=== PATIENT | female | born 1960 | race Caucasian/White ===

== ENCOUNTER 2019-07-18 15:22 | Outpatient (CLI) | payer MEDICARE, OTHER | END 2019-07-18 15:23 | disposition home or self-care (01) | LOC: COV 15:22 | PROVIDERS: ATTEND Family Medicine | DX: R50.9 Fever, unspecified (principal) | CPT/HCPCS: 81599 ==

== ENCOUNTER 2019-07-21 12:45 | Emergency (ER) | payer MEDICARE, OTHER ==
[2019-07-21] MEDS ORDERED: SODIUM CHLORIDE 0.9% 1,000 ML IV ONE ×2 (13:22→15:46)
--- NOTE | 2019-07-21 13:42 | ED Physician Documentation ---
History of Present Illness - Stated complaint Stated Complaint: WEAKNESS/COUGH - Chief complaint Chief Complaint: General - History obtained from History obtained from: Patient - History of Present Illness Timing: How many days ago (5) Pain level max: 8 Pain level now: 7 - Additonal information Additional information: 59-year-old female states that she has not felt well for the past 5 days or so. She states she has been tired and weak. States she has muscle cramping and decreased appetite. States her left thigh hurts as well. No leg swelling. Nothing makes it better or worse. Has not had fevers but has felt hot and cold. States she had a negative coronavirus test 3 days ago. Today she just feels more tired and fatigued. Review of Systems Ten Systems: 10 systems reviewed and negative Constitutional: reports: Chills. denies: Fever Ears: denies: Ear pain Nose: denies: Rhinorrhea / runny nose, Congestion Throat: denies: Sore throat Cardiac: reports: Chest pain / pressure Respiratory: reports: Cough. denies: Dyspnea, Hemoptysis, Wheezing GI: denies: Abdominal Pain, Nausea, Vomiting, Constipation, Diarrhea : denies: Dysuria Skin: denies: Rash Musculoskeletal: denies: Neck pain, Back pain Neurologic: denies: Headache PD PAST MEDICAL HISTORY - Past Medical History Past Medical History: Yes Cardiovascular: High cholesterol - Present Medications Home Medications: Ambulatory Orders Medication Instructions Recorded Confirmed Albuterol Sulf [Ventolin Hfa] 60 puffs INH Q4HR PRN 07/21/19 07/21/19 Atorvastatin Calcium [Lipitor] 80 mg PO DAILY 07/21/19 07/21/19 Carvedilol 6.25 mg PO BID 07/21/19 07/21/19 Fluticasone [Flonase] 1 sprays HELLEN BID PRN 07/21/19 07/21/19 Montelukast [Singulair] 10 mg PO DAILY 07/21/19 07/21/19 Morphine Sulfate 30 mg PO Q8HR PRN 07/21/19 07/21/19 Olmesartan Medoxomil 20 mg PO DAILY 07/21/19 07/21/19 Omeprazole 40 mg PO DAILY 07/21/19 07/21/19 allopurinoL [Allopurinol] 100 mg PO DAILY 07/21/19 07/21/19 tiZANidine [Zanaflex] 4 mg PO Q8H 07/21/19 07/21/19 - Allergies Allergies/Adverse Reactions: Allergies Allergy/AdvReac Type Severity Reaction Status Date / Time Sulfa (Sulfonamide Allergy Hives Verified 07/21/19 13:10 Antibiotics) - Living Situation Living Situation: reports: With family Living Arrangement: reports: At home PD ED PE NORMAL - Vitals Vital signs reviewed: Yes - General General: Alert and oriented X 3, No acute distress, Well developed/nourished - HEENT HEENT: Moist mucous membranes - Neck Neck: Supple, no meningeal sign - Cardiac Cardiac: RRR, Strong equal pulses - Respiratory Respiratory: No respiratory distress, Clear bilaterally - Abdomen Abdomen: Soft, Non tender, Non distended - Back Back: No CVA TTP, No spinal TTP - Derm Derm: Warm and dry, No rash - Extremities Extremities: No edema, Other (Tender to palpation medial aspect of the left thigh, from the knee to the groin. No palpable cord. No skin changes. No crepitus.) - Neuro Neuro: Alert and oriented X 3 - Psych Psych: Normal mood, Normal affect Results - Vitals Vitals: Vital Signs - 24 hr 07/21/19 07/21/19 07/21/19 12:50 13:10 15:00 Temperature 36 C L Heart Rate 101 H 97 81 Respiratory 18 18 18 Rate Blood Pressure 102/69 113/78 119/60 O2 Saturation 100 100 99 07/21/19 16:30 Temperature Heart Rate 87 Respiratory 16 Rate Blood Pressure 107/72 O2 Saturation 96 Oxygen O2 Source Room air - Labs Labs: Laboratory Tests 07/21/19 07/21/19 07/21/19 13:30 13:55 15:00 WBC 15.2 H RBC 4.95 Hgb 15.5 Hct 47.0 MCV 94.9 MCH 31.3 H MCHC 33.0 RDW 14.6 Plt Count 308 MPV 10.6 Neut # (Auto) 8.2 H Lymph # (Auto) 5.6 H Smith # (Auto) 1.1 H Eos # (Auto) 0.1 Baso # (Auto) 0.1 Absolute Nucleated RBC 0.00 Nucleated RBC % 0.0 Manual Slide Review Indicated RBC Morph Micro Appear 2+ ANISOCYTOSIS Sodium 140 Potassium 3.0 L Chloride 104 Carbon Dioxide 25 Anion Gap 11.0 BUN 21 H Creatinine 0.6 Estimated GFR (MDRD) 102 Glucose 119 H Calcium 8.9 Phosphorus 3.2 Magnesium 1.9 Total Bilirubin 1.0 AST 30 ALT 34 Alkaline Phosphatase 60 Total Protein 6.5 L Albumin 4.0 Globulin 2.5 Albumin/Globulin Ratio 1.6 Lipase 36 Urine Color Urine Clarity Urine pH Ur Specific [place] Urine Protein Urine Glucose (UA) Urine Ketones Urine Occult Blood Urine Nitrite Urine Bilirubin Urine Urobilinogen Ur Leukocyte Esterase Ur Microscopic Review Urine Culture Comments Influenza A (Rapid) Negative Influenza B (Rapid) Negative 07/21/19 16:00 WBC RBC Hgb Hct MCV MCH MCHC RDW Plt Count MPV Neut # (Auto) Lymph # (Auto) Smith # (Auto) Eos # (Auto) Baso # (Auto) Absolute Nucleated RBC Nucleated RBC % Manual Slide Review RBC Morph Micro Appear Sodium Potassium Chloride Carbon Dioxide Anion Gap BUN Creatinine Estimated GFR (MDRD) Glucose Calcium Phosphorus Magnesium Total Bilirubin AST ALT Alkaline Phosphatase Total Protein Albumin Globulin Albumin/Globulin Ratio Lipase Urine Color YELLOW Urine Clarity CLEAR Urine pH 6.5 Ur Specific [place] 1.020 Urine Protein NEGATIVE Urine Glucose (UA) NEGATIVE Urine Ketones NEGATIVE Urine Occult Blood NEGATIVE Urine Nitrite NEGATIVE Urine Bilirubin NEGATIVE Urine Urobilinogen 0.2 (NORMAL) Ur Leukocyte Esterase NEGATIVE Ur Microscopic Review NOT INDICATED Urine Culture Comments NOT INDICATED Influenza A (Rapid) Influenza B (Rapid) - Rads (name of study) Chest x-ray Radiology: Prelim report reviewed, EMP read contemporaneously, See rad report (No acute abnormality) Left lower extremity duplex ultrasound Radiology: Prelim report reviewed, EMP read contemporaneously, See rad report (No DVT) PD MEDICAL DECISION MAKING - ED course Complexity details: reviewed results, re-evaluated patient, considered differential, d/w patient ED course: Patient is dehydrated with mild hypokalemia. Given IV fluids and potassium replaced. Feels better. Appears to be a viral syndrome. Negative coronavirus test 3 days ago. Negative influenza today. No pneumonia on chest x-ray. No evidence of UTI. We will continue supportive care and have her follow-up with her doctor. Patient counseled regarding signs and symptoms for which I believe and urgent re-evaluation would be necessary. Patient with good understanding of and agreement to plan and is comfortable going home at this time This document was made in part using voice recognition software. While efforts are made to proofread this document, sound alike and grammatical errors may occur. Departure - Departure Disposition: 01 Home, Self Care Clinical Impression: Viral syndrome, Dehydration, Hypokalemia Condition: Good Instructions: ED Viral Syndrome Follow-Up: your,doctor in 1 week if not better [Other] Comments: Drink plenty of fluids and rest. You can continue Motrin and Tylenol at home. Return if you worsen.
--- NOTE | 2019-07-21 13:44 | XRAY Report ---
Reason: cough Procedure Date: 07/21/2019 Accession Number: [id number] / [id number] Procedure: XR - Chest 1 View X-Ray CPT Code: 39135 Final Report FULL RESULT: EXAM: CHEST RADIOGRAPHY EXAM DATE: 07/21/2019 01:33 PM. CLINICAL HISTORY: Cough. COMPARISON: None. TECHNIQUE: 1 view. FINDINGS: Lungs/Pleura: Central bronchial wall thickening seen. No superimposed focal airspace consolidation. No pleural effusion or pneumothorax. Mediastinum: Within exam limitations, the cardiomediastinal contour is normal. Other: None. IMPRESSION: 1. Bilateral central bronchial wall thickening could reflect underlying reactive airways or bronchitis. No evidence for pneumonia. RADIA
[2019-07-21 14:03] LABS: BASOPHILS # (AUTO) 0.1 10^3/uL (0.0-0.1); BASOPHILS % (AUTO) 0.5 %; EOSINOPHILS # (AUTO) 0.1 10^3/uL (0.0-0.7); EOSINOPHILS % (AUTO) 0.9 %; HGB - HEMOGLOBIN 15.5 g/dL (12.0-16.0); LYMPHOCYTES # (AUTO) 5.6 10^3/uL (1.5-3.5); LYMPHOCYTES % (AUTO) 36.7 %; MEAN CORPUSCULAR HEMOGLOBIN 31.3 pg (27.0-31.0); MEAN CORPUSCULAR VOLUME 94.9 fL (81.0-99.0); MEAN PLATELET VOLUME 10.6 fL (7.9-10.8); MONOCYTES # (AUTO) 1.1 10^3/uL (0.0-1.0); MONOCYTES % (AUTO) 7.3 %; NEUTROPHILS # (AUTO) 8.2 10^3/uL (1.5-6.6); NEUTROPHILS % (AUTO) 53.9 %; PLT - PLATELET COUNT 308 10^3/uL (130-450); RED BLOOD COUNT 4.95 10^6/uL (4.20-5.40); RED CELL DISTRIBUTION WIDTH 14.6 % (12.0-15.0); WHITE BLOOD COUNT 15.2 x10^3/uL (4.8-10.8)
[2019-07-21 14:35] LABS: RBC MORPHOLOGY (MULTIPLE) 2+ ANISOCYTOSIS (NORMAL)
[2019-07-21] MEDS ORDERED: KETOROLAC 30 MG/ML VIAL IVP STA (15:05)
[2019-07-21 15:33] LABS: ALBUMIN/GLOBULIN RATIO 1.6 (1.0-2.2); CALCIUM 8.9 mg/dL (8.5-10.3); CREATININE 0.6 mg/dL (0.4-1.0); MAGNESIUM 1.9 mg/dL (1.7-2.8); PHOSPHORUS 3.2 mg/dL (2.5-4.6); TOTAL PROTEIN 6.5 g/dL (6.7-8.2)
[2019-07-21 16:09] LABS: BILIRUBIN,URINE NEGATIVE (NEGATIVE); GLUCOSE, URINE (UA) NEGATIVE (NEGATIVE); KETONES,URINE (UA) NEGATIVE (NEGATIVE); LEUKOCYTE ESTERASE, URINE NEGATIVE (NEGATIVE); NITRITE,URINE NEGATIVE (NEGATIVE); OCCULT BLOOD,URINE NEGATIVE (NEGATIVE); PH,URINE 6.5 PH (5.0-7.5); PROTEIN,URINE NEGATIVE (NEGATIVE); UROBILINOGEN,URINE 0.2 (NORMAL) E.U./dL (NORMAL)
[2019-07-21 16:10] LABS: CLARITY,URINE CLEAR (CLEAR)
[2019-07-21] MEDS ORDERED: POTASSIUM CHLORIDE 20 MEQ TABLET PO STA (16:15)
[2019-07-21] MEDS ORDERED: ACETAMINOPHEN 325 MG TABLET PO STA (16:18)
[2019-07-21] MEDS ORDERED: HYDROmorphone 1 MG/ML SYRINGE IVP STA (16:18)
--- NOTE | 2019-07-21 16:22 | Ultrasound Report ---
Reason: L inner thigh pain Procedure Date: 07/21/2019 Accession Number: [id number] / [id number] Procedure: US - Duplex Ext Veins Left CPT Code: Final Report FULL RESULT: EXAM: LEFT LOWER EXTREMITY VENOUS ULTRASOUND EXAM DATE: 07/21/2019 03:44 PM. CLINICAL HISTORY: Left inner thigh pain. COMPARISON: None. TECHNIQUE: Real-time sonographic vascular imaging was performed by the accounts payable administrator through the lower extremity utilizing both color-flow and Doppler spectral analysis. Multiple dermatology sales representative static images were saved for review. FINDINGS: Common Femoral Vein (CFV): Normal. CFV-GSV Junction: Normal. Profunda Femoral Vein (PFV): Normal. Femoral Vein (FV) Prox: Normal. Femoral Vein (FV) Mid: Normal. Femoral Vein (FV) Dist: Normal. Popliteal Vein: Normal. Posterior Tibial Veins: Normal. Peroneal Veins: Normal. Contralateral Side CFV: Normal. Other: None. IMPRESSION: No evidence for deep venous thrombosis. RADIA
[2019-07-21 16:35] VITALS: BP 107/72
== END 2019-07-21 17:20 | disposition home or self-care (01) ==
LOC: ED 12:45
DX: B34.9 Viral infection, unspecified (principal); E86.0 Dehydration; E87.6 Hypokalemia
CPT/HCPCS: 36415; 71045; 80053; 81003; 83690; 83735; 84100; 85025; 87275; 87276; 93971; 96361; 96374; 96375; 99284; A9270; J1170; 81001; 87086

== ENCOUNTER 2019-08-05 19:18 | Emergency (ER) | payer MEDICARE, OTHER ==
[2019-08-05] MEDS ORDERED: LORazepam 1 MG TABLET PO STA (19:45)
--- NOTE | 2019-08-05 19:48 | ED Physician Documentation ---
History of Present Illness - Stated complaint Stated Complaint: SOA, FEET AND FACE STINGING - Additonal information Additional information: This is a 59-year-old female with a history of hypertension, hyperlipidemia, osteoarthritis, who presents with tingling all over her body and intermittent shortness of breath. Patient [place] the [place], she states that she has felt anxious more frequently than usual since the move, today she went out with her , and upon returning she felt more anxious she began having tingling all over her body including her fingers and chest, she went to lay down and she felt like she was not breathing as well as normal, she tried her inhalers that she uses for COPD without relief and she continued to feel tingling over her whole body so she presented to the emergency department. She denies cough, fever, leg swelling, leg redness. She has some chest discomfort which she describes as a numbness across her chest. No hemoptysis or history of blood clots. 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 : None HEENT: None Psych: None Musculoskeletal: Chronic back pain Derm: None - Past Surgical History Past Surgical History: Yes Ortho: Shoulder arthroplasty, Spine surgery /TOY ASSEMBLY SUPERVISOR: section, Hysterectomy Cardiovascular: Vascular surgery HEENT: Tonsil/Adenoidectomy - Present Medications Home Medications: Ambulatory Orders Medication Instructions Recorded Confirmed Albuterol Sulf [Ventolin Hfa] 60 puffs INH Q4HR PRN 07/21/19 07/21/19 Atorvastatin Calcium [Lipitor] 80 mg PO DAILY 07/21/19 07/21/19 Carvedilol 6.25 mg PO BID 07/21/19 07/21/19 Fluticasone [Flonase] 1 sprays HELLEN BID PRN 07/21/19 07/21/19 Montelukast [Singulair] 10 mg PO DAILY 07/21/19 07/21/19 Morphine Sulfate 30 mg PO Q8HR PRN 07/21/19 07/21/19 Olmesartan Medoxomil 20 mg PO DAILY 07/21/19 07/21/19 Omeprazole 40 mg PO DAILY 07/21/19 07/21/19 allopurinoL [Allopurinol] 100 mg PO DAILY 07/21/19 07/21/19 tiZANidine [Zanaflex] 4 mg PO Q8H 07/21/19 07/21/19 - Allergies Allergies/Adverse Reactions: Allergies Allergy/AdvReac Type Severity Reaction Status Date / Time Sulfa (Sulfonamide Allergy Hives Verified 07/21/19 13:10 Antibiotics) - Social History Does the pt smoke?: No Smoking Status: Never smoker Does the pt drink ETOH?: Yes Does the pt have substance abuse?: No - Immunizations Immunizations are current?: Yes - POLST Patient has POLST: No PD ED PE NORMAL - Vitals Vital signs reviewed: Yes - General General: Alert and oriented X 3, No acute distress - HEENT HEENT: PERRL - Neck Neck: Supple, no meningeal sign - Cardiac Cardiac: RRR, No murmur - Respiratory Respiratory: No respiratory distress, Clear bilaterally - Abdomen Abdomen: Normal bowel sounds, Soft, Non tender, Non distended - Derm Derm: Warm and dry - Extremities Extremities: No deformity, No edema - Neuro Neuro: Alert and oriented X 3, color buffer 2-12 intact, No motor deficit, No sensory deficit, Normal speech Results - Vitals Vitals: Vital Signs - 24 hr 08/05/19 08/05/19 19:30 21:10 Temperature 35.8 C L Heart Rate 78 78 Respiratory 24 18 Rate Blood Pressure 133/87 H 136/68 H O2 Saturation 100 100 Oxygen O2 Source Room air - EKG (time done) 19:57 Other comments: Other comments (Rate 76, rhythm sinus, there is borderline left axis deviation. No ST segment elevation or depression, no abnormal T wave inversions. There is some mild motion artifact in lead III) - Labs Labs: Laboratory Tests 08/05/19 08/05/19 08/05/19 19:51 20:05 20:05 WBC 12.5 H RBC 4.26 Hgb 13.5 Hct 39.4 MCV 92.5 MCH 31.7 H MCHC 34.3 RDW 13.2 Plt Count 264 MPV 10.6 Neut # (Auto) 6.7 H Lymph # (Auto) 4.6 H Rosebud # (Auto) 0.9 Eos # (Auto) 0.2 Baso # (Auto) 0.1 Absolute Nucleated RBC 0.00 Nucleated RBC % 0.0 Sodium 139 Potassium 3.1 L Chloride 102 Carbon Dioxide 26 Anion Gap 11.0 BUN 13 Creatinine 0.9 Estimated GFR (MDRD) 64 L Glucose 124 H Calcium 9.3 Total Bilirubin 0.8 AST 30 ALT 27 Alkaline Phosphatase 63 Troponin I High Sens Total Protein 7.2 Albumin 4.4 Globulin 2.8 Albumin/Globulin Ratio 1.6 Lipase 40 Urine Color YELLOW Urine Clarity CLEAR Urine pH 8.5 H Ur Specific [place] 1.010 Urine Protein NEGATIVE Urine Glucose (UA) NEGATIVE Urine Ketones NEGATIVE Urine Occult Blood NEGATIVE Urine Nitrite NEGATIVE Urine Bilirubin NEGATIVE Urine Urobilinogen 0.2 (NORMAL) Ur Leukocyte Esterase NEGATIVE Ur Microscopic Review NOT INDICATED Urine Culture Comments NOT INDICATED 08/05/19 20:05 WBC RBC Hgb Hct MCV MCH MCHC RDW Plt Count MPV Neut # (Auto) Lymph # (Auto) Rosebud # (Auto) Eos # (Auto) Baso # (Auto) Absolute Nucleated RBC Nucleated RBC % Sodium Potassium Chloride Carbon Dioxide Anion Gap BUN Creatinine Estimated GFR (MDRD) Glucose Calcium Total Bilirubin AST ALT Alkaline Phosphatase Troponin I High Sens 5.7 Total Protein Albumin Globulin Albumin/Globulin Ratio Lipase Urine Color Urine Clarity Urine pH Ur Specific [place] Urine Protein Urine Glucose (UA) Urine Ketones Urine Occult Blood Urine Nitrite Urine Bilirubin Urine Urobilinogen Ur Leukocyte Esterase Ur Microscopic Review Urine Culture Comments - Rads (name of study) CXR Radiology: Other (Normal single view chest x-ray) PD MEDICAL DECISION MAKING - ED course Complexity details: considered differential (Dysrhythmia, ACS, anxiety, anemia, electrolyte abnormality, pneumonia, pneumothorax, pulmonary embolism) ED course: On arrival patient is well-appearing, vital signs are unremarkable. She has a normal oxygen saturation, clear lungs, and is very well-appearing on exam. She has no neurologic deficits whatsoever. She endorses some paresthesias over her face, which appear very consistent with paresthesias from hyperventilation. She was given a dose of Ativan, labs are drawn. EKG shows no signs of ischemia or dysrhythmia, and her labs include a negative troponin, making ACS highly unlikely. Chest XR unremarkable. She does have mild hypokalemia, which may also contribute somewhat to her symptoms, she was reviewed repleted with 40 mEq of p.o. potassium. She has a slight and nonspecific leukocytosis, but no signs of an action clinically. Her urine is negative for infection. Pulmonary embolism was considered, however patient has normal oxygen saturation, no signs of DVT, no history of blood clots, and her symptoms completely resolved after the Ativan. On repeat evaluation she is feeling well, her breathing feels calm, and she no longer feels anxious. She denies chest pain or difficulty breathing. I discussed with her that I do not see an emergent cause of her symptoms, I recommended close outpatient follow-up and also reviewed strict return precautions with the patient, who agrees with the plan and was discharged home in good condition in the care of family. Departure - Departure Disposition: 01 Home, Self Care Clinical Impression: Paresthesia Condition: Good Follow-Up: Dayanna Lindsay ARNP [Primary Care Provider] - Within 1 week Comments: Your labs, x-ray, EKG, were reassuring today. I am glad that you are feeling better. You did have low potassium, as we discussed please potassium rich foods such as avocados, bananas, potatoes. Follow-up with your primary care provider to discuss your medications, you are on quite a few medications and some of thes e might have side effects that may be contributing to some of your symptoms as well. If you are developing fever, coughing up blood, leg swelling, Worsening shortness of breath or chest pain, return to the emergency department Discharge Date/Time: 08/05/19 21:25
[2019-08-05 20:07] LABS: BILIRUBIN,URINE NEGATIVE (NEGATIVE); GLUCOSE, URINE (UA) NEGATIVE (NEGATIVE); KETONES,URINE (UA) NEGATIVE (NEGATIVE); LEUKOCYTE ESTERASE, URINE NEGATIVE (NEGATIVE); NITRITE,URINE NEGATIVE (NEGATIVE); OCCULT BLOOD,URINE NEGATIVE (NEGATIVE); PH,URINE 8.5 PH (5.0-7.5); PROTEIN,URINE NEGATIVE (NEGATIVE); UROBILINOGEN,URINE 0.2 (NORMAL) E.U./dL (NORMAL)
--- NOTE | 2019-08-05 20:12 | XRAY Report ---
Reason: Chest Pain Procedure Date: 08/05/2019 Accession Number: [id number] / [id number] Procedure: XR - Chest 1 View X-Ray CPT Code: 24002 Final Report FULL RESULT: EXAM: CHEST RADIOGRAPHY EXAM DATE: 08/05/2019 07:56 PM. CLINICAL HISTORY: Chest pain. COMPARISON: CHEST 1 VIEW 07/21/2019 1:15 PM. TECHNIQUE: 1 view. FINDINGS: Lungs/Pleura: No focal opacities evident. No pleural effusion. No pneumothorax. Mediastinum: Within exam limitations, the cardiomediastinal contour is normal. Other: None. IMPRESSION: Normal single view chest. RADIA
[2019-08-05 20:13] LABS: BASOPHILS # (AUTO) 0.1 10^3/uL (0.0-0.1); BASOPHILS % (AUTO) 0.5 %; EOSINOPHILS # (AUTO) 0.2 10^3/uL (0.0-0.7); EOSINOPHILS % (AUTO) 1.5 %; HGB - HEMOGLOBIN 13.5 g/dL (12.0-16.0); LYMPHOCYTES # (AUTO) 4.6 10^3/uL (1.5-3.5); LYMPHOCYTES % (AUTO) 36.6 %; MEAN CORPUSCULAR HEMOGLOBIN 31.7 pg (27.0-31.0); MEAN CORPUSCULAR HGB CONC 34.3 g/dL (32.0-36.0); MEAN CORPUSCULAR VOLUME 92.5 fL (81.0-99.0); MEAN PLATELET VOLUME 10.6 fL (7.9-10.8); MONOCYTES # (AUTO) 0.9 10^3/uL (0.0-1.0); MONOCYTES % (AUTO) 7.4 %; NEUTROPHILS # (AUTO) 6.7 10^3/uL (1.5-6.6); NEUTROPHILS % (AUTO) 53.4 %; PLT - PLATELET COUNT 264 10^3/uL (130-450); RED BLOOD COUNT 4.26 10^6/uL (4.20-5.40); RED CELL DISTRIBUTION WIDTH 13.2 % (12.0-15.0); WHITE BLOOD COUNT 12.5 x10^3/uL (4.8-10.8)
[2019-08-05 20:17] LABS: CLARITY,URINE CLEAR (CLEAR)
[2019-08-05 20:29] LABS: ALBUMIN 4.4 g/dL (3.2-5.5); ALBUMIN/GLOBULIN RATIO 1.6 (1.0-2.2); BILIRUBIN,TOTAL 0.8 mg/dL (0.2-1.0); CALCIUM 9.3 mg/dL (8.5-10.3); CREATININE 0.9 mg/dL (0.4-1.0); TOTAL PROTEIN 7.2 g/dL (6.7-8.2)
[2019-08-05] MEDS ORDERED: POTASSIUM CHLORIDE 20 MEQ TABLET PO STA ×2 (21:05→21:15)
[2019-08-05 21:12] VITALS: BP 136/68
== END 2019-08-05 21:25 | disposition home or self-care (01) ==
LOC: ED 19:18
DX: E87.6 Hypokalemia (principal); R20.2 Paresthesia of skin; F41.9 Anxiety disorder, unspecified
CPT/HCPCS: 36415; 71045; 80053; 81003; 83690; 84484; 85025; 93005; 99284; A9270; J8499; 81001; 87086

== ENCOUNTER 2019-08-08 11:06 | Outpatient (CLI) | payer MEDICARE, OTHER ==
[2019-08-08 11:48] LABS: THYROID STIMULATING HORMONE 1.75 uIU/mL (0.34-5.60)
[2019-08-08 11:51] LABS: FREE T4 (FREE THYROXINE) 0.8 ng/dL (0.58-1.64)
== END 2019-08-08 11:07 | disposition home or self-care (01) ==
LOC: LAB 11:06
PROVIDERS: ATTEND Obstetrics & Gynecology
DX: R63.4 Abnormal weight loss (principal)
CPT/HCPCS: 36415; 84439; 84443

== ENCOUNTER 2019-10-25 08:19 | Outpatient (CLI) | payer MEDICARE ==
--- NOTE | 2019-10-25 09:46 | XRAY Report ---
PROCEDURE: Knee 4 View RT INDICATIONS: RT KNEE PAIN TECHNIQUE: 4 views of the right knee(s) were acquired. COMPARISON: None. FINDINGS: Bones: No fractures or dislocations. No suspicious bony lesions. Moderate knee joint degeneration with joint space narrowing and periarticular osteophyte. Soft tissues: No joint effusion. No suspicious soft tissue calcifications. IMPRESSION: Moderate degenerative joint disease. Reviewed by: Dejon Pickens MD on 10/25/2019 9:44 AM PDT Approved by: Dejon Pickens MD on 10/25/2019 9:44 AM PDT Station ID: [id number]
== END 2019-10-25 08:20 | disposition home or self-care (01) ==
LOC: DI 08:19
PROVIDERS: ATTEND Physical Medicine & Rehabilitation
DX: M17.11 Unilateral primary osteoarthritis, right knee (principal); M54.16 Radiculopathy, lumbar region

== ENCOUNTER 2019-11-04 09:41 | Outpatient (CLI) | payer MEDICARE, OTHER ==
--- NOTE | 2019-11-04 10:19 | SLEEP CARE CONSULTATION ---
Information from patient questionnaire entered by Mariajose Reyes. I have reviewed and concur with the information entered by Mariajose Reyes. This document represents the service I personally performed and the decisions made by me, Qasim Driver MD, [facility]. History of Present Illness Service Date and Time: 11/04/2019 09 Reason for Visit: New patient Chief Complaint: reports: Insomnia, Unrefreshed sleep, Snoring, Excessive daytime sleepiness, Observed pauses in breathing, Fatigue, Frequent awakenings at night Duration of Symptoms: 6 years Usual bedtime: 5865-0103, can be [id number] Time it takes to fall asleep: a couple hours Snores at night: Yes Observed to quit breathing while asleep: No Sleeps alone due to snoring: No Number of times waking at night: 3-4 Reasons for waking at night: reports: Pain (back), Other (dry mouth) Toss, Turn, or Twitch while sleeping: Yes Recalls having dreams: Yes Usually gets out of bed at: [id number] Feels refreshed in the morning: No Morning headache: No Sleepy or fatigued during the day: Yes Ever fallen asleep while driving: No Takes day naps: Yes (occasionally) Dreams during day naps: Yes Prior sleep studies: Yes Year and Where: 4147-1304 Additional HPI information: I had the pleasure of seeing Ms. Lee and her dog today regarding obstructive sleep apnea-hypopnea. As you know, she is a 59 year old lady who was diagnosed with the sleep-disordered breathing in [place] 4 years ago. The result is not available. She was prescribed a CPAP device set at 7 14 cmH2O which she thinks is too high. She uses it sporadically. The compliance data show usage in 47 out of the past 180 nights, averaging 5.6 hours a night. The residual AHI is 12.7 and average air leak is 27.9 L/minute. She wears a Respironics AmaraView full face mask. She gets her supplies from [employer]. However, she has not gotten anything for a while because [employer] bills her instead of Medicare. She finds the treatment beneficial. Subjective Initial O[place] Sleepiness Scale score: 4 Past Medical History Past Medical History: reports: Arthritis, Fibromyalgia, Anxiety, Asthma, GERD, Other (high blood pressure (meds), Chronic pain (meds), Genetic high cholesterol (meds), COPD (meds)) Social History The patient's occupation is not employed. Patient is and lives in [place]. Have you smoked in the past 12 months: No Alcohol use: Yes Alcohol amount and frequency: rarely a glass of wine Caffeine use: Yes Caffeine amount and frequency: 1 cup coffee in AM Family History Family history of sleep disordered breathing: No Allergies and Home Medications Drug allergies reviewed: Yes Home medication list reviewed: Yes Review of Systems Weight gain over past 5 years: 40 Weight loss over past 5 years: 35 Cardiovascular: reports: high blood pressure, palpitations, chest pain Respiratory: reports: shortness of breath, sputum production Gastrointestinal: reports: heartburn, difficulty swallowing Urinary: reports: incontinence Neurological: denies: headaches, seizure, head trauma, disorientation, speech dysfunction, gait or balance problems, fainting or unconsciousness, other Psychiatric: reports: anxiety (stress) Ear/Nose/Throat: reports: nasal congestion, sinus problems, dry mouth/throat, injury to nose (nose broke a little), tonsillectomy, wisdom teeth removed, other Musculoskeletal: reports: joint pain, neck pain (plate in neck), back pain, joint swelling, muscle pain or cramping, mobility problems, other (all from fall 2010, neck/back/(R) knee/(L) shoulder) Immunologic: reports: allergies to food or environment (environment) Physical Exam Vital signs obtained and entered by: To minimize exposure during this COVID pandemic, exam was not performed. Height: 5 ft 9 in Weight: 194 lb Body Mass Index: 28.6 BMI Classification: Overweight Impression and Plan IMPRESSION: 1. Obstructive Sleep Apnea-Hypopnea Syndrome, as previously diagnosed. The severity is unknown. The patient has [id number] compliance, partly due to lack of supplies and the pressure being too high. The pressure range is not effective either. I suspect that she has to pay out of pocket because her prior prescription after a year. To get Medicare to again cover the treatment, another sleep study will be required to document the sleep-disordered breathing. A manual CPAP/BiPAP titration study will also follow to find the correct pressure setting. Plan: 1. Schedule polysomnography. 2. Avoid long distance driving or when feeling sleepy. 3. Avoid alcohol, sedative and muscle relaxant around bedtime. 4. Attempt to lose weight. 5. Return for a follow up after the sleep study. Visit Type: In Office Time Spent with Patient (minutes): 15 Provider Statement: I spent 100% of the Face to Face Visit with the patient with greater than 50% spent counseling the patient and coordination of care.
== END 2019-11-04 09:42 | disposition home or self-care (01) ==
LOC: SC 09:41
PROVIDERS: ATTEND Internal Medicine Pulmonary Disease
DX: G47.33 Obstructive sleep apnea (adult) (pediatric) (principal); E66.3 Overweight; Z68.28 Body mass index [BMI] 28.0-28.9, adult
CPT/HCPCS: 99203; G0463; 99212

== ENCOUNTER 2019-11-10 10:10 | Outpatient (CLI) | payer MEDICARE, OTHER ==
--- NOTE | 2019-11-10 11:42 | MRI Report ---
PROCEDURE: Lumbar Spine W/O INDICATIONS: Right-sided lumbar radiculopathy TECHNIQUE: Noncontrast sagittal T1 spin echo and T2 fast echo, sagittal STIR, axial T1 and T2 fast spin echo thr ough the lumbar spine. In cases with scoliosis, additional coronal T2 fast spin echo may be performe d. COMPARISON: None. FINDINGS: Image quality: Excellent. Alignment and Curvature: Mild dextroscoliosis centered at L3. Otherwise normal alignment. Vertebral body heights maintained. Bone Marrow: Mild discogenic marrow edema at the opposing L3-L4 endplates. Spinal Cord: Normal appearance and position of the conus. Paraspinous Soft Tissues: No paravertebral masses. T12-L1: No spinal canal or neural foraminal stenosis. L1-L2: No spinal canal or neural foraminal stenosis. L2-L3: Diffuse disc bulge flattens the ventral thecal sac. Disc material abuts and mildly displace s the descending left L3 nerve roots within the left subarticular zone. Foraminal components of the d isc bulge contribute to mild left neural foraminal stenosis in conjunction with facet hypertrophy. L3-L4: Moderate to severe spinal canal stenosis due to combination of diffuse disc bulge, posterior ossific ridging of the endplates, facet hypertrophy, and buckling of the ligamentum flavum. There is considerable displacement of the descending L4 nerve roots within the subarticular zones. Foraminal components of the disc bulge combined with facet hypertrophy to produce severe right and moderate lef t neural foraminal stenosis. L4-L5: Disc bulge flattens the thecal sac with disc material abutting and perhaps mildly displacing the descending right greater than left L5 nerve roots in the subarticular zones. The right L5 nerve roots are interposed between disc and facet material (series 701 image 16). Foraminal components of t he disc bulge contribute to moderate right neural foraminal stenosis in conjunction with facet hypert rophy. L5-S1: Disc bulge flattens ventral thecal sac and abuts the descending S1 nerve roots and both suba rticular zones. There is no neural foraminal stenosis. Sacrum: There are multiple sacral Tarlov cysts measuring up to 1.6 cm. These cysts result in varying degrees of nerve root displacement, for example the S3 nerve roots on series 701 image 3. IMPRESSION: Moderate to severe spinal canal stenosis at L3-L4. Severe right neural foraminal stenosis at L3-L4. Milder degenerative changes at the remaining levels as described above. Multiple sacral Tarlov cysts, of indeterminate clinical significance. Reviewed by: Tyler Banuelos MD on 11/10/2019 11:40 AM PDT Approved by: Tyler Banuelos MD on 11/10/2019 11:40 AM PDT Station ID: [id number]
== END 2019-11-10 10:11 | disposition home or self-care (01) ==
LOC: DI 10:10
PROVIDERS: ATTEND Physical Medicine & Rehabilitation
DX: M47.816 Spondylosis without myelopathy or radiculopathy, lumbar region (principal); M51.36 Other intervertebral disc degeneration, lumbar region; M48.061 Spinal stenosis, lumbar region without neurogenic claudication; M71.38 Other bursal cyst, other site
CPT/HCPCS: 72148

== ENCOUNTER 2019-11-21 20:09 | Outpatient (CLI) | payer MEDICARE | END 2019-11-21 20:10 | disposition home or self-care (01) | LOC: SC 20:09 | PROVIDERS: ATTEND Internal Medicine Pulmonary Disease | DX: G47.10 Hypersomnia, unspecified (principal); G47.00 Insomnia, unspecified; G47.8 Other sleep disorders; R06.83 Snoring; R53.83 Other fatigue; R06.81 Apnea, not elsewhere classified | CPT/HCPCS: 95810 ==

== ENCOUNTER 2020-01-23 17:04 | Outpatient (CLI) | payer MEDICARE ==
--- NOTE | 2020-01-23 18:10 | Ultrasound Report ---
PROCEDURE: Ankle Brachial Index INDICATIONS: PAIN IN LT LOWER LIMB TECHNIQUE: Ankle-brachial indices were obtained bilaterally and recorded. COMPARISONS: None. FINDINGS: Right ankle brachial index (RIAZ): 1.2 Left ankle brachial index (RIAZ): 1.3 Healing potential: Ankle pressures >55 mm Hg in non-diabetics and >80 mm Hg in diabetics are likely to achieve primary h ealing of ischemic foot ulcers. Toe pressures >30 mm Hg are likely to achieve primary healing of ischemic foot ulcers, toe or transme tatarsal amputations. IMPRESSION: 1. Bilateral ABIs within normal limits. 2. Monophasic waveforms within the right dorsalis pedis which may be associated with a stenosis more superiorly. 3. Triphasic waveforms within the left infrageniculate arteries and the right posterior tibial artery . Reviewed by: Radha Winn MD on 01/23/2020 6:08 PM PDT Approved by: Radha Winn MD on 01/23/2020 6:08 PM PDT Station ID: [id number]
== END 2020-01-23 17:05 | disposition home or self-care (01) ==
LOC: DI 17:04
PROVIDERS: ATTEND Family Medicine
DX: M79.605 Pain in left leg (principal)
CPT/HCPCS: 93922

== ENCOUNTER 2020-01-28 15:53 | Outpatient (CLI) | payer MEDICARE ==
--- NOTE | 2020-01-28 16:42 | CT Report ---
PROCEDURE: LUMBAR SPINE WO INDICATIONS: SPINAL STENOSIS TECHNIQUE: Noncontrast 3 mm thick sections acquired from the T12 level to the sacrum. Sagittal and coronal refo rmats were constructed. For radiation dose reduction, the following was used: automated exposure co ntrol, adjustment of mA and/or kV according to patient size. COMPARISON: Correlation is made with the coming lumbar spine plain films, 11/28/2019. Correlation is also made with lumbar spine MRI, 11/10/2019 FINDINGS: Image quality: Excellent. Bones: No acute vertebral body compression fractures. No suspicious lytic or blastic bony lesions. Central spinal caliber is of normal overall caliber. No pars defects. There is transitional lumbar anatomy, with prominent lumbarization of the L5 level on the left side. S-shaped scoliotic curvature is incidentally noted. T12-L1: Normal in appearance. L1-L2: No significant abnormality is seen. L2-L3: The disc height is well-preserved. Moderate disc bulge is seen, which is eccentric to the l eft, with a left lateral recess/left foraminal disc protrusion. There is moderate left-sided and mild right-sided neuroforaminal narrowing seen. Moderate central canal narrowing is seen. L3-L4: Moderate to severe loss of disc height is seen. Vacuum disc phenomenon is seen at this leve l. Endplate irregularity and sclerosis can be seen. Moderate to prominent disc bulge is seen, whic h is eccentric to the left. Partially bridging endplate osteophytes are seen. There is a central disc protrusion. Posteriorly directed endplate osteophytes are seen. Moderate facet hypertrophy is seen . There is at least moderate bilateral neuroforaminal narrowing seen. Moderate to severe central can al narrowing is seen at this level. L4-L5: Moderate loss of disc height is seen. Moderate disc bulge is seen, with a mild central disc protrusion. There is moderate right-sided and moderate to prominent left-sided facet hypertrophy seen . Moderate bilateral neural foraminal narrowing is seen. At least moderate central canal narrowing is seen. L5-S1: There is a transitional disc seen at this level. There is moderate right-sided and no left-sonya ed neuroforaminal narrowing seen. The central canal is widely patent. There is partial visualization of the known Tarlov cysts at the S2 level. Soft tissues: No retroperitoneal masses or hematomas. Visualized aorta is normal in caliber. A nor mal appendix is incidentally noted. IMPRESSION: Multiple levels of lumbar spine degenerative change are seen, which are worst at the L3-L4 level. Transitional lumbar anatomy, with prominent lumbarization of the left aspect of L5. Reviewed by: Franklin Bucio MD on 01/28/2020 3:41 PM AKAVILA Approved by: Franklin Bucio MD on 01/28/2020 3:41 PM AKAVILA Station ID: [id number]
--- NOTE | 2020-01-28 16:46 | XRAY Report ---
PROCEDURE: Lumbar Spine w/Flex/Ext INDICATIONS: SPINAL STENOSIS TECHNIQUE: 4 views of the lumbar spine acquired, including flexion and extension views. COMPARISON: Correlation is made with the accompanying lumbar spine CT, 01/28/2020. Correlation is al so made with the prior lumbar spine MRI, 11/10/2019. FINDINGS: Bones: 5 [id number] vertebrae are present. There are tiny vestigial ribs seen at the T12 level. The L5 level demonstrates sacralization on the left side, which is better visualized on the accompan hosea CT examination. S-shaped scoliotic curvature is incidentally noted. No vertebral body compre ssion fractures. No suspicious bony lesions. There is moderate to severe disc space narrowing seen at the L3-L4 level. Mild loss of disc height ca n be seen elsewhere. Facet arthropathy is seen, which is most prominent inferiorly. Soft tissues: Overlying bowel gas pattern is normal. No suspicious soft tissue calcifications. Flexion/extension: Highly limited range of motion is seen, without abnormal subluxation. IMPRESSION: Highly limited range of motion, without abnormal subluxation. Focal L3-L4 degenerative change. Transitional lumbar anatomy, with sacralization of the left aspect of L5. S-shaped scoliotic curvature. Reviewed by: Franklin Bucio MD on 01/28/2020 3:44 PM ROSMERY Approved by: Franklin Bucio MD on 01/28/2020 3:44 PM ROSMERY Station ID: [id number]
== END 2020-01-28 15:54 | disposition home or self-care (01) ==
LOC: DI 15:53
PROVIDERS: ATTEND Neurological Surgery
DX: M48.061 Spinal stenosis, lumbar region without neurogenic claudication (principal); M47.816 Spondylosis without myelopathy or radiculopathy, lumbar region
CPT/HCPCS: 72114; 72131

== ENCOUNTER 2020-04-19 15:28 | Outpatient (CLI) | payer MEDICARE ==
--- NOTE | 2020-04-19 16:04 | XRAY Report ---
PROCEDURE: Lumbar Spine 2 View INDICATIONS: S/P LUMBAR FUSION TECHNIQUE: 4 views of the lumbar spine were acquired. COMPARISON: None. FINDINGS: No fracture. Scattered multilevel endplate spurring and diffuse facet arthropathy. Grade 1 retrolisthesis of L2 on L3 grade 1 anterolisthesis of L4 on L5. Partially visualized lateral curvature of the spine. Diffuse mild/moderate lumbar disc space narrowing. Scattered vascular calcifi cations are present in the aorta. No evidence of abnormal motion with dynamic flexion and extension lateral views to suggest instability. IMPRESSION: Mild/moderate lumbar spondylosis and facet arthropathy No evidence of abnormal motion with dynamic flexion and extension lateral views to suggest instabilit y. Reviewed by: Bronson Barajas MD on 04/19/2020 4:03 PM PST Approved by: Bronson Barajas MD on 04/19/2020 4:03 PM PST Station ID: [id number]
== END 2020-04-19 15:29 | disposition home or self-care (01) ==
LOC: DI 15:28
PROVIDERS: ATTEND Neurological Surgery
DX: M47.816 Spondylosis without myelopathy or radiculopathy, lumbar region (principal)

== ENCOUNTER 2020-06-06 12:12 | Outpatient (CLI) | payer MEDICARE ==
--- NOTE | 2020-06-06 13:05 | XRAY Report ---
PROCEDURE: Lumbar Spine w/Flex/Ext INDICATIONS: S/P LUMBAR FUSION 03/05/2020 TECHNIQUE: 4 views of the lumbar spine acquired, including flexion and extension views COMPARISON: 04/19/2020, CT 03/29/2020 FINDINGS: Bones: There is transitional lumbar anatomy, with tiny vestigial ribs at the T12 level. By this imag ing scheme, the L5 level is transitional and is highly sacralized on the left side. Postoperative changes are seen, with bilateral pedicle screws at the L3 and L4 levels. The screws guicho ear well placed. Vertical fixation rods are seen. Disc spacers are seen within the postoperative reg ion. No findings of hardware failure or hardware loosening can be seen. Mild dextroconvex scoliotic curvature is seen. On neutral images, there is no significant alignment abnormality. On flexion and extension views, the re is limited range of motion, without abnormal subluxation. Soft tissues: Overlying bowel gas pattern is normal. No suspicious soft tissue calcifications. Ath erosclerotic calcification is seen. IMPRESSION: Unremarkable L3-L4 postoperative hardware. Limited range of motion, without abnormal subluxation. Transitional lumbar anatomy, with tiny vestigial ribs at T12 and a partially sacralized L5 level on t he left. Mild dextroconvex scoliotic curvature. Reviewed by: Franklin Bucio MD on 06/06/2020 12:03 PM [place] Approved by: Franklin Bucio MD on 06/06/2020 12:03 PM [place] Station ID: [id number]
== END 2020-06-06 12:13 | disposition home or self-care (01) ==
LOC: DI 12:12
PROVIDERS: ATTEND Nurse Practitioner Family
DX: M41.86 Other forms of scoliosis, lumbar region (principal); Z98.1 Arthrodesis status

== ENCOUNTER 2020-10-06 11:25 | Outpatient (CLI) | payer MEDICARE ==
--- NOTE | 2020-10-07 14:22 | Mammography Report ---
BILATERAL DIGITAL DIAGNOSTIC MAMMOGRAM 3D/2D: 10/06/2020 CLINICAL: Focal left breast pain. Additional films were requested but not obtained. The tissue of both breasts is heterogeneously dens e. This may lower the sensitivity of mammography. There is a biopsy site marker on the right breast. There is a 0.8 cm oval equal density asymmetry in the left breast posterior depth superior region see n on the mediolateral oblique view only. It is less conspicuous on spot compression views. No other significant masses, calcifications, or other findings are seen in either breast. IMPRESSION: INCOMPLETE: NEED PRIOR STUDIES FOR COMPARISON The 0.8 cm oval equal density asymmetry in the left breast resembles fibroglandular tissue and is ind eterminate. An ultrasound is recommended for further evaluation and is scheduled to immediately follo w this examination. There is no abnormality seen in the right breast to correspond with the area of clinical concern, pal pable abnormality, and pain indicated by square marker in the middle depth in the upper aspect. An u ltrasound is recommended for further evaluation and is scheduled to immediately follow this examinati on. This exam was interpreted at Station ID: [id number]. NOTE: For mammograms, a report in lay terms will be sent to the patient. Approximately 15% of breast malignancies will not be visualized mammographically. In the management of a palpable breast mass, a negative mammogram must not discourage biopsy of a clinically suspicious lesion. Electronically Signed By: Kings Godoy M.D. aty/:10/06/2020 13:31:49 ACR BI-RADS Category 0 Need prior studies for comparison [id number] PARENCHYMAL PATTERN: (D) - The breast(s) demonstrate(s) heterogeneously dense fibroglandular matthew crow. BI-RADS CATEGORY: (0) - 0 Ultrasound [id number] Immediate follow-up LATERALITY: (B)
--- NOTE | 2020-10-07 14:22 | Ultrasound Report ---
LIMITED ULTRASOUND OF RIGHT BREAST: 10/06/2020 CLINICAL: Focal right breast pain. Comparison is made to exam dated: 10/06/2020 mammogram - [facility]. Real-time ultrasound of the right breast 12 o'clock region was performed. Gonzalez scale images of the r eal-time examination were reviewed. No significant abnormalities were seen sonographically in the right breast. IMPRESSION: NEGATIVE There is no sonographic evidence of malignancy. There is no abnormality seen in the right breast to correspond with the area of clinical concern, pal pable abnormality, and focal pain indicated by square marker, however, recommend clinical follow up f or persistent or worsening symptoms, or development of any clinically suspicious findings. A 1 year screening right mammogram is recommended. The patient will return in 6 months for follow up left breast mammogram for a probably benign finding described in separate ultrasound report of the le ft breast. Findings and recommendations were conveyed to the patient during today's evaluation. This exam was interpreted at Station ID: [id number]. Electronically Signed By: Kings Godoy M.D. aty/:10/06/2020 14:30:03 Ultrasound BI-RADS: 1 Negative BI-RADS CATEGORY: (1) - 1 RECOMMENDATION: (ANNUAL) - Recommend routine annual screening mammography. [id number] 1 year screening LATERALITY: (R)
--- NOTE | 2020-10-07 14:23 | Ultrasound Report ---
LIMITED ULTRASOUND OF LEFT BREAST: 10/06/2020 CLINICAL: Patient returns today to evaluate a focal asymmetry in the left breast. Comparison is made to exam dated: 10/06/2020 mammogram - [facility]. Real-time ultrasound of the left breast 8-10 o'clock region was performed. Gonzalez scale images of the real-time examination were reviewed. No significant abnormalities were seen sonographically in the left breast. IMPRESSION: PROBABLY BENIGN There is no abnormality seen in the left breast to correspond with the mediolateral oblique and later al view asymmetry seen on recent mammographic evaluation which likely represents normal fibroglandula r tissue. This is probably benign. A follow-up left mammogram in 6 months is recommended to demonstrate stability. Findings and recommendations were conveyed to the patient during today's evaluation. This exam was interpreted at Station ID: [id number]. Electronically Signed By: Kings Godoy M.D. aty/:10/06/2020 14:31:57 Ultrasound BI-RADS: 3 Probably benign BI-RADS CATEGORY: (3) - 3 Mammogram [id number] 6 month follow-up LATERALITY: (L)
== END 2020-10-06 11:26 | disposition home or self-care (01) ==
LOC: DI 11:25
PROVIDERS: ATTEND Family Medicine
DX: N64.4 Mastodynia (principal)

== ENCOUNTER 2020-10-14 11:00 | Outpatient (CLI) | payer MEDICARE ==
--- NOTE | 2020-10-20 09:01 | CT Report ---
PROCEDURE: Abdomen/Pelvis WO INDICATIONS: ABDOMINAL PAIN TECHNIQUE: Noncontrast 5 mm thick sections acquired from the diaphragms to the symphysis. 5 mm coronal and sagi ttal reformats were then performed. For radiation dose reduction, the following was used: automated exposure control, adjustment of mA and/or kV according to patient size. COMPARISON: None. FINDINGS: Image quality: Excellent. ABDOMEN: Lung bases: Lung bases are clear. Heart size is normal. Solid organs: Liver and spleen are normal in size but the liver appears diffusely fatty infiltrated and mildly heterogeneous in its degree of fatty infiltration on this noncontrast CT scan.. Gallbladd er Pancreas is normal in contours. No adrenal nodules. Kidneys are normal in size, without hyd ronephrosis or nephrolithiasis. Peritoneum and bowel: Unenhanced bowel loops demonstrate normal wall thickness and caliber. No free fluid or air. Nodes and vessels: No retroperitoneal or mesenteric adenopathy by size criteria. Aorta and inferior vena cava are normal in caliber. There is generalized colonic obstipation. Miscellaneous: No ventral hernias. PELVIS: Genitourinary: Bladder wall thickness is normal. Miscellaneous: No inguinal hernias or adenopathy. Generalized colonic obstipation. No intestinal ob struction or perforation is suspected. Bones: No suspicious bony lesions. No vertebral body compression fractures. IMPRESSION: Generalized colonic obstipation within the abdomen and pelvis bilaterally. Note is made of relatively prominent fatty infiltration throughout the liver which is heterogeneous in radiodensity and extensi ve fatty infiltration. Please correlate for etiology of hepatic steatosis. Through the abdomen and pelvis no intestinal obstruction or perforation is found. No free fluid or in flammation is identified. Reviewed by: Favio Aguirre MD on 10/14/2020 5:24 PM PDT Approved by: Favio Aguirre MD on 10/14/2020 5:24 PM PDT Station ID: [id number]
== END 2020-10-14 11:01 | disposition home or self-care (01) ==
LOC: DI 11:00
PROVIDERS: ATTEND Student in an Organized Health Care Education/Training Program
DX: R10.9 Unspecified abdominal pain (principal); K59.00 Constipation, unspecified; K76.0 Fatty (change of) liver, not elsewhere classified

== ENCOUNTER 2020-10-14 12:52 | Outpatient (CLI) | payer MEDICARE ==
--- NOTE | 2020-10-14 14:51 | CT Report ---
PROCEDURE: LUMBAR SPINE WO INDICATIONS: LUMBAR RADICULOPATHY TECHNIQUE: Noncontrast 3 mm thick sections acquired from the T12 level to the sacrum. Sagittal and coronal refo rmats were constructed. For radiation dose reduction, the following was used: automated exposure co ntrol, adjustment of mA and/or kV according to patient size. COMPARISON: Lumbar spine plain films dated 06/06/2020. Lumbar spine CT dated 01/28/2020 FINDINGS: Image quality: Degraded by technical factors. Bones: There is mild, grade 1 retrolisthesis of L2 on L3 and L3 on L4. Mild grade 1 anterolisthesis of L4 on L5. Posterior fusion of L3-L4 has been performed with posterior rods and pedicle screws. No acute vertebral body compression fractures. No suspicious lytic or blastic bony lesions. Central sp inal caliber is of normal overall caliber. No pars defects. T12-L1: Mild disc height loss. Mild diffuse disc bulge. Mild facet hypertrophy. Mild canal stenosis. Mild bilateral foraminal stenosis. No significant change. L1-L2: Mild disc height loss. Mild facet hypertrophy bilaterally. Mild canal stenosis. Mild bilate ral foraminal stenosis. No significant change. L2-L3: Mild disc height loss and diffuse disc bulge. Mild bilateral facet hypertrophy. Mild canal stenosis. Mild right and moderate left foraminal stenosis. No significant change. L3-L4: Status post fusion. Severe disc height loss. Mild residual disc bulge/osteophyte. Mild bilat eral facet hypertrophy. Mild canal stenosis. Moderate bilateral foraminal stenosis. No significant ch thi. L4-L5: Diffuse disc bulge. Mild disc height loss. Mild facet hypertrophy bilaterally. Mild to moder ate canal stenosis. Moderate bilateral subarticular foraminal stenosis. No significant change. L5-S1: Moderate disc height loss. Moderate bilateral facet hypertrophy. Mild canal stenosis. Modera te right and no left foraminal stenosis. No significant change. Soft tissues: No retroperitoneal masses or hematomas. Visualized aorta is normal in caliber. IMPRESSION: 1. Multilevel degenerative disc and facet disease. Next line 2. Postsurgical sequelae. 3. Multilevel canal and foraminal stenoses as described above. Reviewed by: Karly Greene MD on 10/14/2020 2:49 PM PDT Approved by: Karly Greene MD on 10/14/2020 2:49 PM PDT Station ID: [id number]
== END 2020-10-14 12:53 | disposition home or self-care (01) ==
LOC: DI 12:52
PROVIDERS: ATTEND Neurological Surgery
DX: M51.17 Intervertebral disc disorders with radiculopathy, lumbosacral region (principal); M48.07 Spinal stenosis, lumbosacral region; Z98.1 Arthrodesis status; R10.9 Unspecified abdominal pain; K59.00 Constipation, unspecified; K76.0 Fatty (change of) liver, not elsewhere classified

== ENCOUNTER 2020-12-08 16:04 | Outpatient (CLI) | payer MEDICARE ==
--- NOTE | 2020-12-09 15:59 | Ultrasound Report ---
PROCEDURE: Head or Neck Soft Tissue INDICATIONS: CYST OF NECK TECHNIQUE: Real time scanning was performed of the neck region of interest, with image documentation . COMPARISON: None. FINDINGS: There is a subcutaneous hyperechoic focus which is well-circumscribed within the posterior neck, measuring 30 mm x 6 mm x 22 mm. 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 This could be confirmed with MRI with and without int ravenous contrast, if clinically indicated. Reviewed by: Karly Greene MD on 12/09/2020 3:58 PM PDT Approved by: Karly Greene MD on 12/09/2020 3:58 PM PDT Station ID: [id number]
== END 2020-12-08 16:05 | disposition home or self-care (01) ==
LOC: DI 16:04
PROVIDERS: ATTEND Family Medicine
DX: R93.7 Abnormal findings on diagnostic imaging of other parts of musculoskeletal system (principal)